=== PATIENT | male | born 1935 | race Caucasian/White ===

== ENCOUNTER → 2017-01-09 | Outpatient (CLI) | payer MEDICARE, BC ==
[~2017-01-09] MED LIST: ALDACTONE 25MG25 M1 PO; AMITRIPTYLINE H10 M1 PO; ASPIRIN 81M81 MG/TA2 PO; CARDIZEM CD 24240 MG PO; COREG 25MG25 MG/TAB PO; IMDUR 30MG30 MG/TAB PO; INSLANT SC; INSLANT SQ; KLOR-CON M2020 MEQ PO; LANTUS100 U/ML SQ; LASIX 80MG TABL80 MG PO; LEVAQUIN 750MG750 M1 PO; LIPITOR 10MG10 MG PO; NATEGLINIDE120 MG PO; NATEGLINIDE60 MG PO; PLAVIX 75MG TAB75 MG PO; PRILOSEC 20MG20 MG PO; RT ALBUTER2.5 MG/0.5 IH; VITAMIN C500 MG PO; VITAMIN D31000 IU PO
== END ==
LOC: COL.RAD 09:30
DX: I51.7 Cardiomegaly (principal); I31.3 Pericardial effusion (noninflammatory); I70.0 Atherosclerosis of aorta; I25.10 Atherosclerotic heart disease of native coronary artery without angina pectoris; J43.9 Emphysema, unspecified; N40.0 Benign prostatic hyperplasia without lower urinary tract symptoms